=== PATIENT | female | born 1995 | race Caucasian/White ===

== ENCOUNTER 2017-02-10 23:32 | Emergency (ER) | payer BC ==
[~2017-02-10] VITALS: Ht 157.5 cm; Wt 56.0 kg
[2017-02-10] MEDS ORDERED: HALOPERIDOL LACTATE 5 MG/ML 1 ML VIAL ONE (23:38)
[2017-02-10] MEDS ORDERED: LORAZEPAM 2 MG/ML 1 ML VIAL ONE (23:38)
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
[2017-02-11 00:01] VITALS: TEMP 37; Ht 157.5 cm; Wt 56.0 kg
[2017-02-11 00:11] LABS: BUN/CREATININE RATIO 23.8 (10-20); CALCIUM 8.6 mg/dl (8.5-10.1); CREATININE 0.81 mg/dl (0.60-1.20); POTASSIUM 3.3 mmol/L (3.5-5.1)
[2017-02-11] MEDS ORDERED: LORAZEPAM 0.5 MG TAB SL STA (00:54)
[2017-02-11] MEDS ORDERED: ETONMIS VAGRING (04:46)
[2017-02-11] MEDS ORDERED: ESCI10TA17 PO (04:46)
[2017-02-11 05:15] VITALS: BP 113/72; PULSE 72; O2SAT 96
== END 2017-02-11 05:08 | disposition home or self-care (01) ==
LOC: EDBD 23:32 → C.EDA 23:33
DX: T51.91XA Toxic effect of unspecified alcohol, accidental (unintentional), initial encounter (principal); J45.909 Unspecified asthma, uncomplicated; F41.9 Anxiety disorder, unspecified; F32.9 Major depressive disorder, single episode, unspecified; Z79.899 Other long term (current) drug therapy